=== PATIENT | female | born 1965 | race Caucasian/White ===

== ENCOUNTER 2020-01-17 11:08 | Emergency (ER) | payer BC ==
[2020-01-17] MEDS ORDERED: Acetaminophen TAB* 325 MG PO ONE (11:44)
--- NOTE | 2020-01-17 11:50 | UC ---
Head Injury HPI - HPI Summary HPI Summary: 54-year-old female who was cleaning her shower and slipped and fell hitting her head against the metal track of the shower door. No loss of consciousness. She does have a laceration to her right orbit and a smaller laceration to her left orbit. Immunizations are up-to-date. - History Of Current Complaint Chief Complaint: UCHeadInjury Stated Complaint: HEAD INJ Time Seen by Provider: 01/17/20 11:49 Hx Obtained From: Patient ?: No Onset/Duration: Sudden Onset Severity Currently: Mild Severity Initially: Mild Pain Intensity: 7 Aggravating Factor(s): Nothing Alleviating Factor(s): Nothing Associated Signs And Symptoms: Negative: LOC (Time In Secs./Mins/Hrs), LOC Duration Unknown, Confusion, Memory Loss, Seizure, Epistaxis, Neck Pain, Nausea , Vomiting - Allergies/Home Medications Allergies/Adverse Reactions: Allergies Allergy/AdvReac Type Severity Reaction Status Date / Time No Known Allergies Allergy Verified 01/17/20 11:24 Home Medications: Home Medications NK [No Home Medications Reported] 01/17/20 [History Confirmed 01/17/20] PMH/Surg Hx/FS Hx/Imm Hx Previously Healthy: Yes - Surgical History Surgical History: Yes Surgery Procedure, Year, and Place: Tonsilectomy. tubal ligation. hysterectomy - Family History Known Family History: Positive: Unknown - Social History Lives: With Family Alcohol Use: Occasionally Substance Use Type: None Smoking Status (MU): Never Smoked Tobacco - Immunization History Most Recent Tetanus Shot: UTD Review of Systems All Other Systems Reviewed And Are Negative: Yes Skin: Positive: Other - 0.75 cm laceration to the right orbit and 0.25 cm laceration left orbit. Is Patient Immunocompromised?: No Physical Exam Triage Information Reviewed: Yes Appearance: Well-Appearing, No Pain Distress, Well-Nourished Vital Signs: Initial Vital Signs Temp 97.8 F 01/17/20 11:25 Pulse 72 01/17/20 11:25 Resp 17 01/17/20 11:25 BP 132/118 01/17/20 11:25 Pulse Ox 98 01/17/20 11:25 Vital Signs Reviewed: Yes Eyes: Positive: Conjunctiva Clear - Gaye, EOMI, negative eye drift ENT: Positive: Pharynx normal, TMs normal, Uvula midline, Other - No septal hematoma Neck: Positive: Supple, Nontender - C-spine nontender, No Lymphadenopathy Respiratory: Positive: Chest non-tender, Lungs clear, Normal breath sounds, No respiratory distress, No accessory muscle use Cardiovascular: Positive: RRR, No Murmur, Pulses Normal, Brisk Capillary Refill Abdomen Description: Positive: Nontender, No Organomegaly, Soft. Negative: CVA Tenderness (R), CVA Tenderness (L), Distended, Guarding, Hepatomegaly, Splenomegaly Bowel Sounds: Positive: Present Musculoskeletal Exam: Normal Musculoskeletal: Positive: Strength Intact, ROM Intact, No Edema, Other: - Good peripheral pulses, neuro sensation and capillary refill, good arm and leg strength against resistance. Skull is intact and nontender. Orbits are intact and nontender. Neurological Exam: Normal Neurological: Positive: Alert, Muscle Tone Normal, Other: - Cranial nerves II through XII are intact, good finger to nose bilaterally, normal dystidiokinesia , good [id number] bilaterally, Romberg negative, good heel-to-toe forward and backward. Psychological Exam: Normal Skin: Positive: Other - 0.75 cm laceration to the right lateral orbit, 0.25 cm laceration to the left lateral orbit. Lacerations are non-gaping. Head Injury Course/Dx - Course Course Of Treatment: The patient is comfortable here. The left orbit laceration is superficial. The right orbit laceration, I am unable to make it gape and it remains together very nicely on its own. The areas were cleansed. I applied skin adhesive to the right orbit laceration. The patient was noted to have elevated blood pressure at the time of initial vital signs. We did have the patient return to have her blood pressure rechecked and it was normal. Head injury precautions were discussed with the patient and her prior to discharge. - Differential Dx/Diagnosis Provider Diagnosis: Laceration of left orbit, Laceration of right orbit, Fall Discharge ED - Sign-Out/Discharge Documenting (check all that apply): Patient Departure All imaging exams completed and their final reports reviewed: No Studies - Discharge Plan Condition: Good Disposition: HOME Patient Education Materials: Head Injury (ED), Skin Adhesive Care (ED) Referrals: Rosendo CHICAS,Sathish Ledezma [Primary Care Provider] - Additional Instructions: Call 911 if you have any change in her normal mental status, starts vomiting or any worsening symptoms. You may shower however do not scrub at the area of your lacerations. Follow-up with your primary care provider as needed if any further concerns. - Billing Disposition and Condition Condition: GOOD Disposition: Home
[2020-01-17 12:52] VITALS: BP 118/84
== END 2020-01-17 12:17 | disposition home or self-care (01) ==
LOC: UCCORT 11:08
DX: S05.42XA Penetrating wound of orbit with or without foreign body, left eye, initial encounter (principal); S05.41XA Penetrating wound of orbit with or without foreign body, right eye, initial encounter; W01.0XXA Fall on same level from slipping, tripping and stumbling without subsequent striking against object, initial encounter; Y92.9 Unspecified place or not applicable
CPT/HCPCS: 12001; 99202; A9270-GY; G0463